=== PATIENT | male | born 1970 | race Hispanic/Latino ===

== ENCOUNTER 2024-02-16 08:38 | Outpatient (CLI) | payer BC | END 2024-02-17 08:39 | disposition home or self-care (01) | LOC: CSHSLEEP 08:38 | PROVIDERS: ATTEND Family Medicine | DX: G47.33 Obstructive sleep apnea (adult) (pediatric) (principal); R53.83 Other fatigue; I10 Essential (primary) hypertension; G47.61 Periodic limb movement disorder | CPT/HCPCS: 95811 ==